=== PATIENT | female | born 1960 | race Asian ===

== ENCOUNTER 2019-06-04 12:47 | Emergency (ER) | payer BC ==
[~2019-06-04] VITALS: Ht 157.5 cm; Wt 48.5 kg
--- NOTE | 2019-06-04 13:05 | NUR ---
Patient is awake, alert, and oriented x4. is at bedside. Patient reports falling off a ladder today, approximately at 7 feet. Patient presents with left ankle pain radiating to her toes. Patient did not tolerate blood pressure cuff, patient's ripped it off stating it is not important. RADHA Mcgowan was at bedside.
--- NOTE | 2019-06-04 13:06 | NUR ---
ER RADHA Mcgowan examining patient.
[2019-06-04] MEDS ORDERED: MORPHINE 4 MG/ML INJ. SYRINGE IVP ONE (13:30)
[2019-06-04] MEDS ORDERED: NACL 0.9% 1,000 ML IV ONE (13:30)
[2019-06-04] MEDS ORDERED: DIPHENHYDRAMINE INJ 50 MG/ML VIAL IVP ONE (13:30)
--- NOTE | 2019-06-04 13:40 | NUR ---
Patient transported to radiology via gurney, accompanied by wireless field technician.
--- NOTE | 2019-06-04 13:44 | NUR ---
TAKEN TO RADIOLOGY FOR TESTING
--- NOTE | 2019-06-04 14:00 | NUR ---
Returned from radiology, back to [facility].
[2019-06-04 15:40] VITALS: BP_SYST 99
--- NOTE | 2019-06-04 15:40 | NUR ---
Patient given written and verbal discharge instructions and verbalizes understanding. ER MD discussed with patient the results and treatment provided. Patient in stable condition. ID arm band removed. IV catheter removed intact and dressing applied, no active bleeding. Rx of motrin, tramadol given. Patient educated on pain management and to follow up with PMD. Pain Scale 0/10. Opportunity for questions provided and answered. Medication side effect fact sheet provided.
== END 2019-06-04 15:40 | disposition home or self-care (01) ==
LOC: SED 12:47
DX: S93.491A Sprain of other ligament of right ankle, initial encounter (principal); S76.011A Strain of muscle, fascia and tendon of right hip, initial encounter; W11.XXXA Fall on and from ladder, initial encounter; Y93.89 Activity, other specified; Y92.89 Other specified places as the place of occurrence of the external cause; Y99.8 Other external cause status
CPT/HCPCS: 29515; 73502; 73590; 73610; 96374; 96375; 99283; J1200; J2270; J7030